=== PATIENT | male | born 1965 | race Caucasian/White ===

== ENCOUNTER → 2017-05-10 | Outpatient (CLI) | payer MEDICARE ==
[~2017-05-10] MED LIST: BUSPAR30 MG PO; DILTIAZEM ER90 M1 PO; HYDROCODONE-AP1 EAC6 PO; HYSINGLA ER60 MG PO; IBUPROFEN 200200 M1 PO; MS CONTIN15 MG PO; NABUMETONE 500500 M1 PO; NAPROSYN500 MG PO; NEURONTIN600 MG PO; NEURONTIN800 MG PO; NORCO 10-325 T1 EACH PO; NORCO 5-325 TA1 EACH PO; NORCO 7.5-3251 EACH PO; NORTRIPTYLINE H25 M3 PO; OMEPRAZOLE20 M1 PO; OXYCONTIN20 M1 PO; PRILOSEC 20 MG20 MG PO; REMERON15 MG PO; TENORMIN50 MG PO; ZOLOFT100 MG PO
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
== END | disposition home or self-care (01) ==
LOC: M.PC 02:00
DX: M54.12 Radiculopathy, cervical region (principal); G89.4 Chronic pain syndrome; M19.90 Unspecified osteoarthritis, unspecified site; Z79.891 Long term (current) use of opiate analgesic; Z88.8 Allergy status to other drugs, medicaments and biological substances; Z79.899 Other long term (current) drug therapy

== ENCOUNTER → 2017-07-05 | Outpatient (CLI) | payer MEDICARE ==
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
== END ==
LOC: M.PC 03:35
DX: M17.0 Bilateral primary osteoarthritis of knee (principal); M19.042 Primary osteoarthritis, left hand; M19.041 Primary osteoarthritis, right hand; M54.16 Radiculopathy, lumbar region; M54.12 Radiculopathy, cervical region; M96.0 Pseudarthrosis after fusion or arthrodesis; F17.200 Nicotine dependence, unspecified, uncomplicated; Z79.899 Other long term (current) drug therapy

== ENCOUNTER → 2017-08-30 | Outpatient (CLI) | payer MEDICARE ==
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
== END ==
LOC: M.PC 04:36
DX: M17.0 Bilateral primary osteoarthritis of knee (principal); M19.042 Primary osteoarthritis, left hand; M19.041 Primary osteoarthritis, right hand; M54.12 Radiculopathy, cervical region; M54.9 Dorsalgia, unspecified; G89.4 Chronic pain syndrome; Z79.899 Other long term (current) drug therapy

== ENCOUNTER → 2017-09-27 | Outpatient (CLI) | payer MEDICARE ==
--- NOTE | 2017-09-28 07:50 | PAINCON ---
[address] [address] PAIN MANAGEMENT CONSULTATION Name: IFEANYI PATTERSON Room: [facility] DONOVAN Guevara#: [id number] Admission: 09/27/17 Attend Phys: Nan Gaspar Discharge: Date of : 65 Report #: [id number] THIS REPORT FOR: //name// CC: Stephanie Goss The patient is a 52-year-old gentleman long treated for osteoarthritis affecting hands and knees, chronic pain syndrome requiring complex medication management, component of axial back pain. He has had a cervical epidural injection back in May with overall improvement of radicular pain. He was requesting that we repeat that injection today. He has been stable on his baseline narcotic including hydrocodone 5/325 up to t.i.d. for breakthrough pain and MS Contin 15 mg q. 8 hours for baseline narcotic. This puts him at about 60 mg of morphine equivalence a day. He has been stable on this medication for some time. No problems from daytime somnolence, mental acuity changes and constipation. His last random drug screen on 08/31/2017, last visit was positive for prescribed medications. He returns to pain clinic today noting increasing problems with headaches. He tells me he has had migraines now for quite some time. He actually has a headache in the left temporal area with some photophobia, greater than 15 out of 30 days. He has really been on no migraine prophylaxis medications. He does take atenolol for blood pressure, though even with this beta homer agent, he remains a little hypertensive, blood pressure in the 170/70 range, pulse is 65. PHYSICAL EXAMINATION: Otherwise shows little photophobia with decreased cervical range of motion. Tender over the left temporal area. Positive Lhermitte's with radiation bilaterally. Osteoarthritic nodules, both hands. We reviewed the fact that opiate medications are being used to provide analgesia adequate to support activities of daily living, not attempting to achieve a specific pain score on the 0-10 Visual Analog Scale. The current opiate medications are providing sufficient analgesia to allow the patient to participate in activities of daily living. The patient is not exhibiting any aberrant behavior suggestive of drug diversion. The patient is not having any adverse reactions to medications. The patient is not suffering from daytime somnolence or mental acuity changes. The patient is managing opiate-induced constipation with appropriate jhnx-qge-ftudbid agents and dietary considerations. The patient was counseled on concern for caution with operating a motor vehicle while using opiate medications. A physical exam was performed and the patient's functional status was evaluated. All patients with back pain were advised against the bed rest greater than 4 days and were advised to return to normal activities. [place] [address] PAIN MANAGEMENT CONSULTATION Name: IFEANYI PATTERSON [facility] [id number] Admission: 09/27/17 Attend Phys: Nan Gaspar Discharge: Date of : 65 Report #: [id number] noted and the treatment plan was reviewed with the patient. All current medications, both prescribed and OTC were reviewed and reconciled on the electronic medical record. Tobacco screening was accomplished and smoking cessation was advised when indicated. BMI was noted and diet/exercise modification was recommended for all patients following outside normal parameters. I reviewed with the patient today their responsibilities to safeguard prescription medications, reviewed their responsibility to utilize medications only as prescribed by the physician. They are to seek and receive pain medications only from 1 physician group ( [facility]). They are to use 1 pharmacy and keep the clinic informed if they change pharmacies. Their responsibilities include making followup visits in a timely fashion and to avoid abrupt discontinuation of medication usage. Their responsibilities further include bringing their medications (bottles from the pharmacy with residual pills) to the visit for possible confirmation of pill counts and the patient understands it is their responsibility to submit to random drug screens to ensure both that the medications prescribed are present, and that no other controlled substances are present. All prescriptions provided today were generated electronically. ASSESSMENT: 1. Chronic pain syndrome, osteoarthritis affecting hands and knees, axial back pain, cervical radiculopathy requiring complex medication management. 2. Acute exacerbation of chronic migraine headaches. RECOMMENDATION: 1. Continue current medication unchanged today including MS Contin and hydrocodone along with ibuprofen and gabapentin 800 mg t.i.d. 2. Cervical epidural injection under fluoroscopy today. 3. Nicotine cessation discussed at length today. 4. We will start the patient on nortriptyline 20 mg at bedtime. The patient cautioned about daytime somnolence and xerostomia. 5. We will consider adding Imitrex. We discussed this today. If nortriptyline does not help with migraine prophylaxis, may consider adding propranolol or simply increasing his atenolol. I strongly recommend he follow up with his vice president & general manager [employer] [place] physician, Dr. Stephanie Griffiths regarding adjusting his beta homer dose given hypertension today. PROCEDURE: Cervical epidural injection under fluoroscopy. PROCEDURE NOTE: After written and informed consent was obtained including risk of dural puncture, spinal cord trauma, paralysis and increased pain, the patient was taken to the fluoroscopy suite and placed in the prone position, with appropriate abdominal bolstering, neck was flexed, palms under the thighs. Skin was prepped with ChloraPrep. Sterile draping was applied. Skin wheal with [address] [address] PAIN MANAGEMENT CONSULTATION Name: IFEANYI PATTERSON Room: [facility] DONOVAN Guevara#: [id number] Admission: 09/27/17 Attend Phys: Nan Gaspar Discharge: Date of : 65 Report #: [id number] 1% Xylocaine was raised. A 22-gauge 3-1/2 inch epidural Tuohy needle was placed via a midline approach at the C7-T1 interspace, advanced under biplanar fluoroscopy using continuous loss of resistance. With appropriate loss of resistance at the expected depth on lateral view, the glass loss of resistance syringe was disconnected. A low volume extension tubing was connected to the needle and a 5 mL syringe. Negative aspiration for cerebrospinal fluid or blood was noted. A 1 mL of Omnipaque was injected which showed spread within the epidural space on biplanar fluoroscopy. This was followed with 80 mg of triamcinolone plus 1 mL of 1.5% preservative Xylocaine. Needle was withdrawn to the interspinous ligament, 0.5 mL of Xylocaine was used to flush the needle. The needle was then completely withdrawn. The area was cleansed. Band-Aid was applied. The patient was allowed to move off the procedure table and ambulated to the recovery room, monitored for an appropriate period of time, discharged in good and stable condition. <ELECTRONICALLY SIGNED> By: Juan Goss DO 09/28/17 0750 1408 [id number] Goss DO /flora
== END | disposition home or self-care (01) ==
LOC: M.PC 03:56
DX: M54.12 Radiculopathy, cervical region (principal); G89.4 Chronic pain syndrome; I10 Essential (primary) hypertension; M19.90 Unspecified osteoarthritis, unspecified site; G43.809 Other migraine, not intractable, without status migrainosus; Z79.899 Other long term (current) drug therapy; Z79.891 Long term (current) use of opiate analgesic; Z88.8 Allergy status to other drugs, medicaments and biological substances; Z98.890 Other specified postprocedural states

== ENCOUNTER → 2017-11-29 | Outpatient (CLI) | payer MEDICARE | LOC: M.ULTRA 13:04 | DX: K40.90 Unilateral inguinal hernia, without obstruction or gangrene, not specified as recurrent (principal) ==

== ENCOUNTER → 2017-12-14 | Outpatient (CLI) | payer MEDICARE ==
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
== END ==
LOC: M.PC 03:29
DX: M54.5 Low back pain (principal); M54.2 Cervicalgia; I10 Essential (primary) hypertension; G89.4 Chronic pain syndrome; K46.9 Unspecified abdominal hernia without obstruction or gangrene; F32.9 Major depressive disorder, single episode, unspecified

== ENCOUNTER → 2018-03-13 | Outpatient (CLI) | payer MEDICARE | LOC: M.PC 03-08 02:47 | DX: M54.5 Low back pain (principal); M54.2 Cervicalgia; R10.9 Unspecified abdominal pain; W19.XXXA Unspecified fall, initial encounter ==

== ENCOUNTER → 2018-06-05 | Outpatient (CLI) | payer MEDICARE ==
[~2018-06-05] MED LIST changes: +INDERAL LA60 M1 PO; +MEDROLDOSEPACK PO
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
== END ==
LOC: M.PC 04:54
DX: M54.12 Radiculopathy, cervical region (principal); G89.29 Other chronic pain; I10 Essential (primary) hypertension; F32.9 Major depressive disorder, single episode, unspecified; K46.9 Unspecified abdominal hernia without obstruction or gangrene; Z79.899 Other long term (current) drug therapy

== ENCOUNTER 2018-07-05 11:59 | Emergency (ER) | payer MEDICARE ==
[~2018-07-05] VITALS: Ht 182.9 cm; Wt 70.8 kg
[2018-07-05] MEDS ORDERED: ABILIFY10 MG (12:23)
[2018-07-05] MEDS ORDERED: ATIVAN1 MG (12:24)
[2018-07-05 12:47] LABS: ABSOLUTE BASOPHILS 0.1 thou/uL (0.0-0.2); ABSOLUTE EOSINOPHILS 0.2 thou/uL (0.0-0.7); ABSOLUTE LYMPHOCYTES 2.8 thou/uL (0.8-5.3); ABSOLUTE MONOCYTES 0.6 thou/uL (0.0-1.2); ABSOLUTE NEUTROPHILS 4.3 thou/uL (1.6-8.1); HEMATOCRIT 42.7 % (42.0-52.0); HEMOGLOBIN 14.4 gm/dL (14.0-18.0); LYMPHOCYTES 35.4 %; MCHC 33.7 g/dL (28.0-37.0); MCV 89.1 fL (80.0-100.0); MONOCYTES 7.4 %; MPV 6.6 fl. (7.2-11.1); NUCLEATED RBCS 0 /100WBC; PLATELET COUNT* 259 thou/uL (150-400); POLYS 53.2 %; RDW-CV 14.9 % (10.5-14.5)
[2018-07-05 13:10] LABS: INFLUENZA A ANTIGEN None Detected (None Detect); INFLUENZA B ANTIGEN None Detected (None Detect)
[2018-07-05 13:14] LABS: ANION GAP 2 mmol/L (7-16); BUN 10 mg/dL (7-18); CHLORIDE 102 mmol/L (98-107); CO2 36 mmol/L (21-32); CREATININE 0.9 mg/dL (0.6-1.3); GLUCOSE 89 mg/dL (70-99); POTASSIUM 4.5 mmol/L (3.5-5.1); SODIUM 140 mmol/L (136-145); TROPONIN-I LEVEL <0.06 ng/mL (<0.06)
[2018-07-05 13:25] LABS: ALBUMIN 3.7 g/dL (3.4-5.0); ALKALINE PHOSPHATASE 93 U/L (46-116); NT-PRO BRAIN NAT PEPTIDE 90 pg/mL (<300); SGOT 12 U/L (15-37); SGPT 21 U/L (30-65); TOTAL BILIRUBIN 0.3 mg/dL (<0.1-1.0); TOTAL PROTEIN 6.9 g/dL (6.4-8.2)
[2018-07-05] MEDS ORDERED: LEVAQUIN 500 M500 M2 PO (14:10)
[2018-07-05] MEDS ORDERED: MEDROLDOSEPACK PO (14:10)
[2018-07-05] MEDS ORDERED: VENTOLIN HFA 1818 GM INH (14:10)
[2018-07-05 14:20] VITALS: BP 177/88
--- NOTE | 2018-07-05 16:26 | EKG ---
[place] [address] ELECTROCARDIOGRAM REPORT Name: IFEANYI PATTERSON Room: [facility].#: [id number] Admission: 07/05/18 Attend Phys: Discharge: 07/05/18 Date of : 65 Report #: [id number] THIS REPORT FOR: //name// [facility] ED Test Date: 2018-07-05 Test Time: 12:10:23 Pat Name: IFEANYI PATTERSON Department: Room: Gender: M Real Estate Paralegal: Tayo MCMAHAN : 1965 Requested By: Ania Sanchez Order Number: [id number] MD: Ceasar Bautista Measurements Intervals [place] Rate: 65 P: 39 WI: 137 QRS: 75 QRSD: 99 T: 73 QT: 386 QTc: 402 Interpretive Statements Sinus rhythm Anterior infarct, old No previous ECG available for comparison Electronically Signed On 07-05-2018 16:26:31 [employer] by Ceasar Bautista [email or web address] <ELECTRONICALLY SIGNED> By: Ceasar Bautista MD, [facility] 07/05/18 1626 1210 1210 Ceasar Bautista MD, FACC /EPI
== END 2018-07-05 14:22 | disposition left against medical advice (07) ==
LOC: M.ERS 11:59
PROVIDERS: Nurse Practitioner Family
DX: J44.1 Chronic obstructive pulmonary disease with (acute) exacerbation (principal); R09.02 Hypoxemia; I10 Essential (primary) hypertension; F32.9 Major depressive disorder, single episode, unspecified; F17.210 Nicotine dependence, cigarettes, uncomplicated

== ENCOUNTER → 2018-08-28 | Outpatient (CLI) | payer MEDICARE ==
[~2018-08-28] MED LIST changes: +ABILIFY10 MG; +ATIVAN1 MG PO; +HYDROCODON-ACE1 EAC7 PO; +IPRAT-ALBUT 0.5-3 ML INH; +LEVAQUIN 500 M500 M2 PO; +PREDNISONE 10 M10 MG PO; +VENTOLIN HFA 1818 GM INH; +XANAX 0.5 MG0.5 MG PO
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
== END | disposition home or self-care (01) ==
LOC: M.PC 04:52 → M.RAD 04:52 → M.PC 10:20
DX: M54.16 Radiculopathy, lumbar region (principal); G89.29 Other chronic pain; M19.032 Primary osteoarthritis, left wrist; I10 Essential (primary) hypertension; F32.9 Major depressive disorder, single episode, unspecified; F17.210 Nicotine dependence, cigarettes, uncomplicated; Z98.890 Other specified postprocedural states; Z79.899 Other long term (current) drug therapy; Z88.8 Allergy status to other drugs, medicaments and biological substances; Z79.891 Long term (current) use of opiate analgesic

== ENCOUNTER → 2018-11-20 | Outpatient (CLI) | payer MEDICARE ==
[~2018-11-20] MED LIST changes: +HYDROCODON-ACE1 EAC5 PO
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
== END | disposition home or self-care (01) ==
LOC: M.PC 05:09
DX: M54.16 Radiculopathy, lumbar region (principal); G89.29 Other chronic pain; M54.12 Radiculopathy, cervical region; I10 Essential (primary) hypertension; J44.9 Chronic obstructive pulmonary disease, unspecified; F17.210 Nicotine dependence, cigarettes, uncomplicated; F32.9 Major depressive disorder, single episode, unspecified; Z98.890 Other specified postprocedural states; Z79.899 Other long term (current) drug therapy; Z88.8 Allergy status to other drugs, medicaments and biological substances; Z79.891 Long term (current) use of opiate analgesic

== ENCOUNTER → 2018-12-18 | Outpatient (CLI) | payer MEDICARE ==
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
== END | disposition home or self-care (01) ==
LOC: M.PC 05:10
DX: M54.12 Radiculopathy, cervical region (principal); G89.29 Other chronic pain; I10 Essential (primary) hypertension; J44.9 Chronic obstructive pulmonary disease, unspecified; F32.9 Major depressive disorder, single episode, unspecified; Z98.890 Other specified postprocedural states; Z79.899 Other long term (current) drug therapy; Z88.8 Allergy status to other drugs, medicaments and biological substances; Z79.891 Long term (current) use of opiate analgesic

== ENCOUNTER → 2019-02-12 | Outpatient (CLI) | payer MEDICARE ==
[~2019-02-12] MED LIST changes: +NARCAN4 MG NASAL
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
== END ==
LOC: M.PC 05:13
DX: Z76.0 Encounter for issue of repeat prescription (principal); M54.12 Radiculopathy, cervical region; M54.5 Low back pain; G89.29 Other chronic pain; I10 Essential (primary) hypertension; F32.9 Major depressive disorder, single episode, unspecified; Z79.899 Other long term (current) drug therapy

== ENCOUNTER → 2019-05-07 | Outpatient (CLI) | payer MEDICARE ==
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
== END ==
LOC: M.PC 04:27
DX: M54.5 Low back pain (principal); G89.29 Other chronic pain; M54.2 Cervicalgia; I10 Essential (primary) hypertension; R10.9 Unspecified abdominal pain; Z79.891 Long term (current) use of opiate analgesic

== ENCOUNTER → 2019-07-23 | Outpatient (CLI) | payer MEDICARE ==
[2019-07-23 11:31] LABS: CREATININE 0.9 mg/dL (0.6-1.3)
== END ==
LOC: M.LAB 07-12 08:30 → M.CT 07-12 09:30 → M.LAB 07-16 08:30
PROVIDERS: Family Medicine
DX: I67.1 Cerebral aneurysm, nonruptured (principal); G43.109 Migraine with aura, not intractable, without status migrainosus; Z82.49 Family history of ischemic heart disease and other diseases of the circulatory system; Z88.5 Allergy status to narcotic agent; Z88.8 Allergy status to other drugs, medicaments and biological substances

== ENCOUNTER → 2019-07-30 | Outpatient (CLI) | payer MEDICARE ==
[~2019-07-30] MED LIST changes: +HYDROCODON-ACE1 EAC8 PO; +HYDROCODONE-AP1 EA11 PO
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
== END ==
LOC: M.PC 04:20
DX: M54.5 Low back pain (principal); M54.2 Cervicalgia; I10 Essential (primary) hypertension; R10.9 Unspecified abdominal pain

== ENCOUNTER → 2019-10-22 | Outpatient (CLI) | payer MEDICARE ==
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
== END ==
LOC: M.PC 03:56
PROVIDERS: ATTEND Anesthesiology Pain Medicine
DX: M54.2 Cervicalgia (principal); M54.5 Low back pain; I10 Essential (primary) hypertension; I67.1 Cerebral aneurysm, nonruptured; K46.9 Unspecified abdominal hernia without obstruction or gangrene; F11.20 Opioid dependence, uncomplicated; Z87.39 Personal history of other diseases of the musculoskeletal system and connective tissue; Z88.8 Allergy status to other drugs, medicaments and biological substances

== ENCOUNTER → 2020-01-14 | Outpatient (CLI) | payer MEDICARE ==
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
== END ==
LOC: M.PC 09:58
PROVIDERS: ATTEND Anesthesiology Pain Medicine
DX: M54.2 Cervicalgia (principal); G89.29 Other chronic pain; M54.5 Low back pain; K46.9 Unspecified abdominal hernia without obstruction or gangrene; I10 Essential (primary) hypertension; F11.20 Opioid dependence, uncomplicated; Z87.39 Personal history of other diseases of the musculoskeletal system and connective tissue; Z79.899 Other long term (current) drug therapy